=== PATIENT | female | born 1980 | race Caucasian/White ===

== ENCOUNTER 2016-09-02 09:55 | Emergency (ER) | payer BC ==
[2016-09-02] MEDS ORDERED: Ondansetron INJ* 2 MG/ML VIAL IV ONE (12:48)
[2016-09-02] MEDS ORDERED: Morphine INJ* 4 MG/ML 1 ML CARPUJECT IV ONE ×2 (12:48→19:18)
[2016-09-02] MEDS ORDERED: NS 0.9% 1000 ML* 1,000 ML IV ONE ×2 (12:48→18:40)
[2016-09-02 13:05] LABS: Hematocrit 41 % (35-47); Hemoglobin 13.7 g/dl (12.0-16.0); Mean Corpuscular HGB Conc 34 g/dl (31-36); Mean Corpuscular Hemoglobin 30 pg (27-31); Mean Corpuscular Volume 90 fL (80-97); Mean Platelet Volume 8 um3 (7.4-10.4); Red Blood Count 4.49 10^6/ul (4.0-5.4); Red Cell Distribution Width 13 % (10.5-15); White Blood Count 8.4 10^3/ul (3.5-10.8)
[2016-09-02 13:10] LABS: Urine Bilirubin Negative (Negative); Urine Glucose Negative (Negative); Urine Nitrite Negative (Negative)
[2016-09-02 13:20] LABS: ALT 12 U/L (7-52); AST 13 U/L (13-39); Albumin 4.2 g/dL (3.2-5.2); Alkaline Phosphatase 32 U/L (34-104); Anion Gap 4 mmol/L (2-11); BUN/Creatinine Ratio 16.7 (8-20); Blood Urea Nitrogen 9 mg/dL (6-24); C Reactive Protein < 1.00 mg/L (< 5.00); CO2 Carbon Dioxide 23 mmol/L (22-32); Calcium 9.1 mg/dL (8.6-10.3); Chloride 109 mmol/L (101-111); EGFR African American 164.3 (>60); EGFR Non-African American 127.7 (>60); Globulin 2.5 g/dL (2-4); Glucose 86 mg/dL (70-100); Sodium 136 mmol/L (133-145); Total Protein 6.7 g/dL (6.4-8.9)
[2016-09-02] MEDS ORDERED: HYDROmorphone INJ* 1 MG/ML CARPUJECT SYRINGE IV SLOW PU ONE (14:08)
[2016-09-02] MEDS ORDERED: Ketorolac INJ* 30 MG/ML 1 ML VIAL IV PUSH ONE (15:09)
[2016-09-02] MEDS ORDERED: HYDROmorphone INJ* 2 MG/ML CARPUJECT SYRINGE IV SLOW PU ONE (16:11)
--- NOTE | 2016-09-02 16:12 | ED ---
Juma Colón Adam, scribed for Lj Holt MD on 09/02/16 at 1231 . Abdominal Pain/Female - HPI Summary HPI Summary: 36 y/o female presents to ED with pain in right groin occurring suddenly at approximately 09:00. She believes it to be a ruptured cyst, stating she has had a few in the past, the last ruptured cyst happening 3 years ago. Before then, she states she used to get them about every two years. On top of her RQ pain, pt is diaphoretic and denies any chills, edema, vomiting, diarrhea, vaginal discharge, vaginal bleeding, dysuria, abd swelling, fever, does not take any pain medications, and is no longer on BCP though she used to take BCP to decrease risk of ruptured cysts to little effect. She does not use tobacco or EtOH and states there is no chance of . - History of Current Complaint Chief Complaint: EDLucho Stated Complaint: LOWER ABD PAIN Time Seen by Provider: 09/02/16 12:22 Hx Obtained From: Patient Hx Last Menstrual Period: 26 DAYS AGO ?: No Onset/Duration: Sudden Onset, Lasting Hours, Still Present Timing: Constant Severity Initially: Moderate Severity Currently: Moderate Pain Intensity: 8 Location: Groin - Left side Groin Associated Signs and Symptoms: Positive: Negative - Chills, edema, dysuria, Diaphoresis. Negative: Fever, Vaginal Bleeding, Vaginal Discharge, Vomiting, Diarrhea Allergies/Adverse Reactions: Allergies Allergy/AdvReac Type Severity Reaction Status Date / Time Penicillins Allergy Severe Anaphylatic Verified 06/05/16 15:58 Shock Red Dye Allergy Eyes Verified 06/05/16 15:58 Itchy/Swollen/Red/Watery Sulfa Drugs Allergy Anaphylatic Verified 06/05/16 15:58 Shock PMH/Surg Hx/FS Hx/Imm Hx Endocrine/Hematology History: Denies: Hx Diabetes, Hx Thyroid Disease Cardiovascular History: Denies: Hx Hypertension Respiratory History: Reports: Hx Asthma Denies: Hx Chronic Obstructive Pulmonary Disease (COPD) GI History: Reports: Other GI Disorders - Multiple past ruptured ovarian cysts Denies: Hx Crohn's Disease, Hx Ulcer Psychiatric History: Reports: Hx Anxiety, Hx Depression, Hx Suicide Attempt Denies: Hx Attention Deficit Hyperactivity Disorder, Hx Eating Disorder, Hx Panic Disorder, Hx Post Traumatic Stress Disorder, Hx Inpatient Treatment, Hx Community Mental Health Tx, Hx Schizophrenia, Hx Bipolar Disorder, Hx of Violent Episodes Against Others, Hx Substance Abuse, Other Psychiatric Issues/ Disorders - Surgical History Surgery Procedure, Year, and Place: inguinal hernia repair 2006 Hx Anesthesia Reactions: No Infectious Disease History: No Infectious Disease History: Reports: Hx Shingles - AT AGE 2 Denies: Hx Clostridium Difficile, Hx Hepatitis, Hx Human Immunodeficiency Virus (HIV), Hx of Known/Suspected MRSA, Hx Tuberculosis, Hx Known/Suspected VRE , Hx Known/Suspected VRSA, History Other Infectious Disease, Traveled Outside the [place] in Last 30 Days - Family History Known Family History: Positive: None Family History: No FHx of alcohol abuse. No FHx of psychotic disorders. No FHx of Crohn's Disease. No FHx of ulcerative colitis - Social History Occupation: Employed Full-time Lives: Alone Alcohol Use: Occasionally Hx Substance Use: No Substance Use Type: Reports: None Hx Tobacco Use: No Smoking Status (MU): Never Smoked Tobacco Review of Systems Positive: Skin Diaphoresis. Negative: Fever, Chills Gastrointestinal: Negative - abd swelling Positive: Abdominal Pain - RLQ and Groin. Negative: Vomiting, Diarrhea Genitourinary: Negative - Vaginal bleeding Negative: dysuria, discharge - No vaginal Discharge Negative: Edema All Other Systems Reviewed And Are Negative: Yes Physical Exam - Summary Physical Exam Summary: The patient is well-nourished and in mild distress. The skin is warm with diaphoresis and skin color reflects adequate perfusion. Good Skin turgor HEENT: The head is normocephalic and atraumatic. The pupils are equal and reactive. The conjunctivae are clear and without drainage. Nares are patent and without drainage. Mouth reveals moist mucous membranes and the throat is without erythema and exudate. The external ears are intact. The ear canals are patent and without drainage. The tympanic membranes are intact. Neck is supple with full range of motion and non-tender. There are no carotid bruits. There is no neck vein distension. Respiratory: Chest is non-tender. Lungs are clear to auscultation and breath sounds are symmetrical and equal. Cardiovascular: Heart is regular rate and rhythm. There is no murmur or rub auscultated. There is no peripheral edema and pulses are symmetrical and equal. Abdomen: The abdomen is soft and non-tender. There are normal bowel sounds heard in all four quadrants and there is no organomegaly palpated. No Mcburney' s point tenderness. Tenderness over right ovary and referred pain from pressing on left ovary Musculoskeletal: There is no back pain noted. Extremities are non-tender with full range of motion. There is good capillary refill. There is no peripheral edema or calf tenderness elicited. No CVA tenderness. Neurological: Patient is alert and oriented to person, place and time. The patient has symmetrical motor strength in all four extremities. Cranial nerves are grossly intact. Deep tendon reflexes are symmetrical and equal in all four extremities. Psychiatric: The patient has an appropriate affect and does not exhibit any anxiety or depression. Triage Information Reviewed: Yes Vital Signs On Initial Exam: Initial Vitals Temp Pulse Resp BP Pulse Ox 97.8 F 96 20 117/86 100 09/02/16 10:02 09/02/16 10:02 09/02/16 10:02 09/02/16 10:02 09/02/16 10:02 Vital Signs Reviewed: Yes Diagnostics - Vital Signs Vital Signs Temp Pulse Resp BP Pulse Ox 09/02/16 10:47 98.0 F 94 18 140/35 100 09/02/16 10:02 97.8 F 96 20 117/86 100 - Laboratory Lab Results: Lab Results 09/02/16 09/02/16 09/02/16 Range/Units 11:04 13:00 13:00 WBC 8.4 (3.5-10.8) 10^3/ul RBC 4.49 (4.0-5.4) 10^6/ul Hgb 13.7 (12.0-16.0) g/dl Hct 41 (35-47) % MCV 90 (80-97) fL MCH 30 (27-31) pg MCHC 34 (31-36) g/dl RDW 13 (10.5-15) % Plt Count 202 (150-450) 10^3/ul MPV 8 (7.4-10.4) um3 Neut % (Auto) 48.2 (38-83) % Lymph % (Auto) 36.6 (25-47) % Dewey % (Auto) 5.4 (1-9) % Eos % (Auto) 8.8 H (0-6) % Baso % (Auto) 1.0 (0-2) % Absolute Neuts (auto) 4.1 (1.5-7.7) 10^3/ul Absolute Lymphs (auto) 3.1 (1.0-4.8) 10^3/ul Absolute Monos (auto) 0.5 (0-0.8) 10^3/ul Absolute Eos (auto) 0.7 H (0-0.6) 10^3/ul Absolute Basos (auto) 0.1 (0-0.2) 10^3/ul Absolute Nucleated RBC 0.01 10^3/ul Nucleated RBC % 0.1 Sodium 136 (133-145) mmol/L Potassium 4.0 (3.5-5.0) mmol/L Chloride 109 (101-111) mmol/L Carbon Dioxide 23 (22-32) mmol/L Anion Gap 4 (2-11) mmol/L BUN 9 (6-24) mg/dL Creatinine 0.54 (0.51-0.95) mg/dL Est GFR ( Amer) 164.3 (>60) Est GFR (Non-Af Amer) 127.7 (>60) BUN/Creatinine Ratio 16.7 (8-20) Glucose 86 (70-100) mg/dL Lactic Acid (0.5-2.0) mmol/L Calcium 9.1 (8.6-10.3) mg/dL Total Bilirubin 0.90 (0.2-1.0) mg/dL AST 13 (13-39) U/L ALT 12 (7-52) U/L Alkaline Phosphatase 32 L (34-104) U/L C-Reactive Protein < 1.00 (< 5.00) mg/L Total Protein 6.7 (6.4-8.9) g/dL Albumin 4.2 (3.2-5.2) g/dL Globulin 2.5 (2-4) g/dL Albumin/Globulin Ratio 1.7 (1-3) Beta HCG, Quant < 0.60 mIU/mL Urine Color Yellow Urine Appearance Clear Urine pH 6.0 (5-9) Ur Specific [place] 1.008 L (1.010-1.030) Urine Protein Negative (Negative) Urine Ketones Negative (Negative) Urine Blood Negative (Negative) Urine Nitrate Negative (Negative) Urine Bilirubin Negative (Negative) Urine Urobilinogen Negative (Negative) Ur Leukocyte Esterase Negative (Negative) Urine Glucose Negative (Negative) 02/17/17 Range/Units 13:00 WBC (3.5-10.8) 10^3/ul RBC (4.0-5.4) 10^6/ul Hgb (12.0-16.0) g/dl Hct (35-47) % MCV (80-97) fL MCH (27-31) pg MCHC (31-36) g/dl RDW (10.5-15) % Plt Count (150-450) 10^3/ul MPV (7.4-10.4) um3 Neut % (Auto) (38-83) % Lymph % (Auto) (25-47) % Dewey % (Auto) (1-9) % Eos % (Auto) (0-6) % Baso % (Auto) (0-2) % Absolute Neuts (auto) (1.5-7.7) 10^3/ul Absolute Lymphs (auto) (1.0-4.8) 10^3/ul Absolute Monos (auto) (0-0.8) 10^3/ul Absolute Eos (auto) (0-0.6) 10^3/ul Absolute Basos (auto) (0-0.2) 10^3/ul Absolute Nucleated RBC 10^3/ul Nucleated RBC % Sodium (133-145) mmol/L Potassium (3.5-5.0) mmol/L Chloride (101-111) mmol/L Carbon Dioxide (22-32) mmol/L Anion Gap (2-11) mmol/L BUN (6-24) mg/dL Creatinine (0.51-0.95) mg/dL Est GFR ( Amer) (>60) Est GFR (Non-Af Amer) (>60) BUN/Creatinine Ratio (8-20) Glucose (70-100) mg/dL Lactic Acid 0.7 (0.5-2.0) mmol/L Calcium (8.6-10.3) mg/dL Total Bilirubin (0.2-1.0) mg/dL AST (13-39) U/L ALT (7-52) U/L Alkaline Phosphatase (34-104) U/L C-Reactive Protein (< 5.00) mg/L Total Protein (6.4-8.9) g/dL Albumin (3.2-5.2) g/dL Globulin (2-4) g/dL Albumin/Globulin Ratio (1-3) Beta HCG, Quant mIU/mL Urine Color Urine Appearance Urine pH (5-9) Ur Specific [place] (1.010-1.030) Urine Protein (Negative) Urine Ketones (Negative) Urine Blood (Negative) Urine Nitrate (Negative) Urine Bilirubin (Negative) Urine Urobilinogen (Negative) Ur Leukocyte Esterase (Negative) Urine Glucose (Negative) Result Diagrams: 09/02/16 13:00 09/02/16 13:00 Lab Statement: Any lab studies that have been ordered have been reviewed, and results considered in the medical decision making process. Abdominal Pain Fem Course/Dx - Diagnoses Differential Diagnosis: Positive: Ovarian Cyst, , Urinary Tract Infection, Other - ovarian torsion, ruptured ovarian cyst Provider Diagnoses: Pelvic pain Discharge - Discharge Plan Condition: Stable Disposition: OTHER Discharge Disposition Comment: Pending transvaginal ultrasound. Sign out to Dr. Burt. Referrals: Merlyn Anguiano, MBA INTERN [Primary Care Provider] - The documentation as recorded by the Juma magdaleno Adam accurately reflects the service I personally performed and the decisions made by , Lj Holt MD.
--- NOTE | 2016-09-02 16:53 | RAD ---
INDICATION: Right-sided pelvic pain starting this morning COMPARISON: Pelvic sonogram October 20, 2010 TECHNIQUE: Longitudinal and transverse transabdominal scans of the pelvis were obtained. The patient client transvaginal imaging FINDINGS: Uterus: The uterus is enlarged. The uterus measures 13.7 x 4.9 x 6.7 cm. Endometrial thickness: The endometrial thickness is measured at 1.1 cm. . Free fluid: There is no significant free fluid . Ovaries: The ovaries are normal in size. The right ovary measures 2.6 x 2.1 x 1.7 cm. The left ovary measures 2.6 x 1.9 x 1.3 cm. . Doppler interrogation demonstrates flow to each ovary. Other: None IMPRESSION: THE UTERUS IS ENLARGED. THE OVARIES APPEAR NORMAL.
--- NOTE | 2016-09-02 19:15 | RAD ---
INDICATION: Right lower quadrant pain COMPARISON: Pelvic sonogram same date TECHNIQUE: Noncontrast axial source images were acquired from the level hemidiaphragms to the symphysis pubis. Intravenous contrast was not given because of reported contrast allergy. Oral contrast was not given at the emergency department's discretion. Lung bases: The lung bases are clear. Liver: The liver is normal in size. Noncontrast imaging shows no evidence of a hepatic mass or ductal dilatation. Gallbladder: There are no calcified gallstones. There is no evidence of wall thickening or pericholecystic fluid.. Spleen: The spleen is normal in size. The noncontrast CT appearance is normal. Pancreas: Noncontrast imaging shows no pancreatic mass or ductal dilitation. Evaluation is very limited without oral and intravenous contrast. Adrenal glands: No masses are identified. Kidneys/Bladder: There is no evidence of nephrolithiasis or CT evidence of hydronephrosis. Noncontrast imaging shows no evidence of a renal mass. 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 Adenopathy: There is no evidence of intraperitoneal or retroperitoneal adenopathy. Evaluation is limited without oral contrast. Fluid collections: There are no free or localized fluid collections. Vessels: The aorta and iliac vessels are normal in caliber. There are no significant atherosclerotic changes. The IVC appears normal Pelvic organs: The uterus and adnexa appear normal GI tract: Evaluation of the bowel is limited without oral contrast. The stomach, small bowel, and lower GI tract appear grossly normal. There are no obstructive findings. The appendix is visualized and appears normal. Soft tissues: There is left inguinal hernia repair. Osseous structures: There are no acute osseous findings. IMPRESSION: NONCONTRAST IMAGING DEMONSTRATES NO ACUTE CT FINDINGS. THERE IS NO MASS OR INFLAMMATORY CHANGE. THE APPENDIX APPEARS NORMAL
[2016-09-02] MEDS ORDERED: oxyCODONE/Acetamin 5/325 MG* TAB PO ONE (19:34)
[2016-09-02 20:12] VITALS: BP 102/81
--- NOTE | 2016-11-04 07:44 | ED ---
Karen oClón Michael, scribed for Ruddy Burt MD on 09/02/16 at 1718 . Progress - Progress Note Progress Note: Patient refused pelvic exam and understands limitations on the diagnoses due to lack of pelvic exam. - Results/Orders Results/Orders: Pelvis US: Radiologist- THE UTERUS IS ENLARGED. THE OVARIES APPEAR NORMAL. CT ABD/PEL: Radiologist- NONCONTRAST IMAGING DEMONSTRATES NO ACUTE CT FINDINGS. THERE IS NO MASS OR INFLAMMATORY CHANGE. THE APPENDIX APPEARS NORMAL Course/Dx - Diagnoses Provider Diagnoses: Abdominal pain, Uterine enlargement The documentation as recorded by the jay jayibKaren land Michael accurately reflects the service I personally performed and the decisions made by Carmel amaya Jerry, MD.
== END 2016-09-02 20:07 | disposition home or self-care (01) ==
LOC: ED 09:55
DX: R10.2 Pelvic and perineal pain (principal); Z88.0 Allergy status to penicillin; Z88.2 Allergy status to sulfonamides
CPT/HCPCS: 36415; 74176; 76856; 80053; 81003; 83605; 84702; 85025; 86140; 99283; A9270-GY; J1170; J1885; J2270; J2405

== ENCOUNTER → 2017-09-04 18:15 | Emergency (ER) | payer SELFPAY ==
[2017-09-04 18:43] VITALS: BP 110/73
--- NOTE | 2017-09-04 19:29 | UC ---
Sammie Colón Gabriel, scribed for Meir Gutierrez MD on 09/04/17 at 1856 . Ear Complaint HPI - HPI Summary HPI Summary: This patient is a 37 year old F presenting to [facility] with a chief complaint of left sided ear pain that began several weeks ago. The patient rates the pain 7/ 10 in severity. Patient reports new onset left sided sore throat, new onset FRY, and clogged left ear. Hx of parotiditis. Pt ran out of her inhaler and her insurance ran out. - History of Current Complaint Chief Complaint: UCGeneralIllness Stated Complaint: EAR ACHE, AND SORE THROAT Time Seen by Provider: 09/04/17 18:51 Hx Obtained From: Patient Hx Last Menstrual Period: 08/14/17 Onset/Duration: Still Present Severity Initially: Severe Severity Currently: Severe Pain Intensity: 7 Pain Scale Used: 0-10 Numeric Associated Signs/Symptoms: Negative: Discharge, Hearing Loss - Allergies/Home Medications Allergies/Adverse Reactions: Allergies Allergy/AdvReac Type Severity Reaction Status Date / Time Penicillins Allergy Anaphylatic Verified 09/04/17 18:45 Shock red dye Allergy Vomiting Verified 09/04/17 18:45 Sulfa (Sulfonamide Allergy Anaphylatic Verified 09/04/17 18:45 Antibiotics) Shock PMH/Surg Hx/FS Hx/Imm Hx Respiratory History: Asthma Other History Of: Negative For: Hepatitis B - Surgical History Surgical History: Yes Surgery Procedure, Year, and Place: inguinal hernia repair 2005 - Family History Known Family History: Negative: Diabetes, Renal Disease, Respiratory Disease, Seizure Disorder Family History: No FHx of alcohol abuse. No FHx of psychotic disorders. No FHx of Crohn's Disease. No FHx of ulcerative colitis - Social History Occupation: Employed Full-time Alcohol Use: Occasionally Substance Use Type: None Smoking Status (MU): Never Smoked Tobacco Household Exposure Type: Cigarettes - Immunization History Most Recent Influenza Vaccination: season Most Recent Tetanus Shot: UTD Most Recent Pneumonia Vaccination: never Review of Systems ENT: Sore Throat, Ear Ache Neurological: Headache All Other Systems Reviewed And Are Negative: Yes Physical Exam Triage Information Reviewed: Yes Vital Signs: Initial Vital Signs Temp 98.0 F 09/04/17 18:38 Pulse 65 09/04/17 18:38 Resp 16 09/04/17 18:38 BP 110/73 09/04/17 18:38 Pulse Ox 100 09/04/17 18:38 Vital Signs Reviewed: Yes - Additional Comments General: well-appearing, no pain distress Skin: warm, color reflects adequate perfusion, dry Head: Tender around right ear right jaw and right parotid, parotid gland not obviously swollen on exam. left is normal. Eyes: EOMI, SHALOM ENT: normal Oropharynx open Neck: supple, nontender Respiratory: Occasional wheeze Cardiovascular: RRR Abdomen: soft, nontender Bowel: present Musculoskeletal: normal, strength/ROM intact Neurological: normal, sensory/motor intact, A&O x3 Psychological: affect/mood appropriate Ear Complaint Course/Dx - Course Course Of Treatment: DISCUSSED TREATMENT WITH PATIENT. F/U PMD; GET RECHECKED IF WORSE. - Differential Dx/Diagnosis Provider Diagnoses: RIGHT EAR,PAROTID AND THROAT PAIN Discharge - Discharge Plan Condition: Stable Disposition: HOME Prescriptions: Albuterol HFA INHALER* [Ventolin HFA Inhaler*] 2 puff INH Q4H PRN #1 mdi PRN Reason: Wheezing Clindamycin Cap(NF) [Clindamycin Cap 300 mg Cap(NF)] 300 mg PO Q6H #40 cap Fluconazole [Diflucan 150 MG (NF)] 150 mg PO ONCE #1 tab Ketorolac TAB * [Toradol TAB *] 10 mg PO Q6H PRN #15 tab PRN Reason: Pain Patient Education Materials: Pharyngitis (ED), Earache (ED) Referrals: Merlyn Anguiano NP [Primary Care Provider] - Additional Instructions: FOLLOW UP WITH YOUR DOCTOR. GET RECHECKED FOR ANY WORSENING OF YOUR CONDITION OR QUESTIONS OR CONCERNS. The documentation as recorded by the Sammie magdaleno Gabriel accurately reflects the service I personally performed and the decisions made by me, Meir Gutierrez MD.
== END | disposition home or self-care (01) ==
LOC: UCEAST 18:15
DX: H92.02 Otalgia, left ear (principal); R07.0 Pain in throat; K11.8 Other diseases of salivary glands; R51 Headache; J45.909 Unspecified asthma, uncomplicated; Z88.0 Allergy status to penicillin; Z88.2 Allergy status to sulfonamides
CPT/HCPCS: 99212; G0463

== ENCOUNTER 2017-09-05 19:13 | Emergency (ER) | payer SELFPAY ==
[2017-09-05 19:30] VITALS: BP 107/75
== END 2017-09-05 21:00 | disposition left against medical advice (07) ==
LOC: ED 19:13
DX: R60.9 Edema, unspecified (principal)
CPT/HCPCS: 99281